=== PATIENT | female | born 1990 | race Caucasian/White ===

== ENCOUNTER 2016-12-19 16:56 | Emergency (ER) | payer OTHER ==
[~2016-12-19] VITALS: Ht 172.7 cm; Wt 79.4 kg
--- NOTE | 2016-12-19 17:05 | NUR ---
Attempted to perform EKG on the pt, but pt refused. Educated the pt regarding the need for it, but pt still continued to refuse.
--- NOTE | 2016-12-19 17:16 | NUR ---
at the bedside with the pt for MSE.
[2016-12-19] MEDS ORDERED: ASPIRIN 81 MG TAB.CHEW PO ONE (17:45)
[2016-12-19] MEDS ORDERED: HYDROCODONE/APAP 5-325MG TABLET PO ONE (17:45)
--- NOTE | 2016-12-19 17:50 | NUR ---
Pt eloped, but seen by MD. Pt refusing care and treatment. Pt stated that she wanted to go to [facility].
[2016-12-19 17:51] LABS: BASOPHILS % (AUTO) 0.5 % (0.0-2.0); EOSINOPHILS # (AUTO) 0.1 K/uL (0.0-0.7); EOSINOPHILS % (AUTO) 1.3 % (0.0-7.0); HEMATOCRIT 32.7 % (37-47); HEMOGLOBIN 10.7 G/DL (12.0-16.0); LYMPHOCYTES # (AUTO) 2.1 K/UL (0.8-4.8); LYMPHOCYTES % (AUTO) 21.3 % (20.5-51.5); MEAN CORPUSCULAR HGB CONC 33 g/dL (32.0-37.0); MEAN CORPUSCULAR VOLUME 85.2 FL (81.0-99.0); MONOCYTES # (AUTO) 0.5 K/UL (0.1-1.30); MONOCYTES % (AUTO) 5.1 % (0.0-11.0); NEUTROPHILS # (AUTO) 7.2 K/UL (1.8-8.9); NEUTROPHILS % (AUTO) 71.8 % (38.5-71.5); PLATELET COUNT (AUTO) 388 K/UL (150-450); RED BLOOD CELL COUNT(AUTO) 3.83 MIL/UL (4.2-5.4); WHITE BLOOD COUNT (AUTO) 9.9 K/UL (4.0-11.2)
[2016-12-19] MEDS ORDERED: ASPIRIN 81 MG TAB.CHEW ONE (17:54)
[2016-12-19] MEDS ORDERED: HYDROCODONE/APAP 5-325MG TABLET ONE (17:55)
[2016-12-19 18:00] LABS: CREATININE 0.7 mg/dL (0.6-1.3); POTASSIUM 4.3 mmol/L (3.5-5.1)
[2016-12-19 18:15] LABS: BILIRUBIN,DIRECT 0.1 mg/dL (0.0-0.2); BILIRUBIN,TOTAL 0.2 mg/dL (0.2-1.0); TOTAL PROTEIN, SERUM 8.1 g/dL (6.4-8.2)
== END 2016-12-19 17:50 | disposition left against medical advice (07) ==
LOC: ER 16:57
DX: R07.9 Chest pain, unspecified (principal); Z76.5 Malingerer [conscious simulation]; F17.200 Nicotine dependence, unspecified, uncomplicated
CPT/HCPCS: 36415; 80048; 80076; 83880; 84484; 85025; 85379; 93005; 99285; A4663; 70030-TC